=== PATIENT | male | born 1990 | race Caucasian/White ===

== ENCOUNTER 2020-04-11 19:47 | Emergency (ER) | payer MEDICAID ==
--- NOTE | 2020-04-11 20:21 | ER Document Report ---
ED Medical Screen (RME) - General Chief Complaint: Flank Pain Stated Complaint: SIDE PAIN,BACK PAIN Time Seen by Provider: 04/11/20 20:13 Mode of Arrival: Ambulatory Information source: Patient Notes: 29-year-old male presented to ED for complaint of bilateral flank pain. He states when he gets the urge to urinate his bilateral flank gets very tight and tense and then after he urinates everything is feels better. He has been very fatigued for the last 2 to 3 days with no appetite. He states usually he smokes about half pack of day but has not smoked at all today. He states he rarely drinks maybe once or twice a year. He does have a history of anxiety high blood pressure a fractured right hand with surgery and a fractured right shoulder. He has had her tonsils and adenoids removed. He is alert oriented respirations regular nonlabored speaking in full sentences. He does have tenderness to bilateral flank areas. I have greeted and performed a rapid initial assessment of this patient. A comprehensive ED assessment and evaluation of the patient, analysis of test results and completion of medical decision making process will be conducted by an additional ED providers. Physical Exam - Vital signs Vitals: Temp Pulse Resp BP Pulse Ox 98.3 F 84 18 140/82 H 97 04/11/20 19:59 04/11/20 19:59 04/11/20 19:59 04/11/20 19:59 04/11/20 19:59 Course - Vital Signs Vital signs: Temp Pulse Resp BP Pulse Ox 98.3 F 84 18 140/82 H 97 04/11/20 19:59 04/11/20 19:59 04/11/20 19:59 04/11/20 19:59 04/11/20 19:59
[2020-04-11 21:14] LABS: ABSOLUTE EOSINOPHILS # (AUTO) 0.1 10^3/uL (0.0-0.6); ABSOLUTE LYMPHOCYTES (AUTO) 2.1 10^3/uL (0.5-4.7); ABSOLUTE MONOCYTES (AUTO) 0.4 10^3/uL (0.1-1.4); ABSOLUTE NEUT (AUTO) 5.6 10^3/uL (1.7-8.2); BASOPHILS % (AUTO) 0.5 % (0-2); EOSINOPHILS % (AUTO) 1.4 % (0-6); HEMOGLOBIN 15.2 g/dL (13.5-17.0); LYMPHOCYTES % (AUTO) 25.2 % (13-45); MEAN CORPUSCULAR HEMOGLOBIN 29.1 pg (27.0-33.4); MEAN CORPUSCULAR HGB CONC 36.2 g/dL (32.0-36.0); MEAN CORPUSCULAR VOLUME 80 fl (80-97); MONOCYTES % (AUTO) 4.7 % (3-13); PLATELET COUNT 255 10^3/uL (150-450); RED BLOOD COUNT 5.22 10^6/uL (4.35-5.55); RED CELL DISTRIBUTION WIDTH 13.9 % (11.5-14.0); SEGMENTED NEUTROPHILS % (AUTO) 68.2 % (42-78); TOTAL CELLS COUNTED % (AUTO) 100 %; WHITE BLOOD COUNT 8.3 10^3/uL (4.0-10.5)
[2020-04-11 21:24] LABS: APPEARANCE,URINE CLEAR; BILIRUBIN,URINE NEGATIVE (NEGATIVE); COLOR,URINE STRAW; GLUCOSE, URINE NEGATIVE (NEGATIVE); KETONES,URINE NEGATIVE (NEGATIVE); LEUKOCYTE ESTERASE,URINE NEGATIVE (NEGATIVE); NITRITE,URINE NEGATIVE (NEGATIVE); PROTEIN,URINE NEGATIVE (NEGATIVE); URINE SPECIFIC GRAVITY 1.008; UROBILINOGEN,URINE NEGATIVE mg/dL (<2.0)
[2020-04-11 21:33] LABS: ALKALINE PHOSPHATASE 83 U/L (38-126); ANION GAP 12 (5-19); ASPARTATE AMINO TRANSFERASE 34 U/L (17-59); BILIRUBIN,DIRECT 0.3 mg/dL (0.0-0.4); BILIRUBIN,TOTAL 0.5 mg/dL (0.2-1.3); BLOOD UREA NITROGEN 8 mg/dL (7-20); CALCIUM 9.9 mg/dL (8.4-10.2); CARBON DIOXIDE 29 mmol/L (22-30); CHLORIDE 100 mmol/L (98-107); GLUCOSE 99 mg/dL (75-110); NEONATAL BILIRUBIN RESULT 0.2 mg/dL (0.1-1.1); POTASSIUM 3.8 mmol/L (3.6-5.0)
--- NOTE | 2020-04-11 22:30 | RADIOLOGY REPORT (SQ) ---
EXAM DESCRIPTION: Renal ultrasound CLINICAL HISTORY: 29 years Male; Bilateral flank pain TECHNIQUE: Bilateral renal ultrasound was performed. COMPARISON: None. FINDINGS: Right kidney: The kidney measures 10.9 x 5.6 x 5.4 cm and has normal echogenicity. Blood flow is present.. No hydronephrosis or shadowing calculi. Left kidney: The kidney measures 9.5 x 4.3 x 5.5 cm and has normal echogenicity. Normal blood flow. No hydronephrosis or shadowing calculi. Bladder: The bladder is mostly empty. Ureteral jets are not seen. IMPRESSION: Normal renal sonogram.
--- NOTE | 2020-04-12 01:38 | ER Document Report ---
ED General - General Chief Complaint: Flank Pain Stated Complaint: SIDE PAIN,BACK PAIN Time Seen by Provider: 04/11/20 20:13 Mode of Arrival: Ambulatory Information source: Patient TRAVEL OUTSIDE OF THE [place] IN LAST 30 DAYS: No - HPI Onset: Last week Onset/Duration: Gradual, Intermittent Quality of pain: Achy Severity: Mild Pain Level: 1 Associated symptoms: None. denies: Diarrhea, Leg swelling, Nausea, Vomiting, Shortness of breath Exacerbated by: Movement, Walking Relieved by: Denies Similar symptoms previously: No Recently seen / treated by doctor: No Past Medical History - General Information source: Patient - Social History Smoking Status: Current Some Day Smoker Cigarette use (# per day): Yes Chew tobacco use (# tins/day): No Smoking Education Provided: Yes Frequency of alcohol use: None Drug Abuse: None Lives with: Family Family History: CAD, DM, Hypertension, Other - Brother of heart attack in his 20's old of unknown etiology Patient has suicidal ideation: No Patient has homicidal ideation: No - Medical History Medical History: Negative Past Surgical History: Reports: Orthopedic Surgery Review of Systems - Review of Systems Constitutional: No symptoms reported EENT: No symptoms reported Cardiovascular: No symptoms reported Respiratory: No symptoms reported Gastrointestinal: No symptoms reported Genitourinary: No symptoms reported Male Genitourinary: No symptoms reported Musculoskeletal: See HPI Skin: No symptoms reported Hematologic/Lymphatic: No symptoms reported Neurological/Psychological: No symptoms reported Physical Exam - Vital signs Vitals: Temp Pulse Resp BP Pulse Ox 98.3 F 84 18 140/82 H 97 04/11/20 19:59 04/11/20 19:59 04/11/20 19:59 04/11/20 19:59 04/11/20 19:59 - Notes Notes: PHYSICAL EXAMINATION: GENERAL: Well-appearing, well-nourished and in no acute distress. HEAD: Atraumatic, normocephalic. EYES: Pupils equal round and reactive to light, extraocular movements intact, sclera anicteric, conjunctiva are normal. ENT: nares patent, oropharynx clear without exudates. Moist mucous membranes. NECK: Normal range of motion, supple without lymphadenopathy, no appreciable JVD LUNGS: Lungs clear to auscultation bilaterally and equal. No wheezes rales or rhonchi. HEART: Regular rate and rhythm without murmurs ABDOMEN: Soft, nontender, normal bowel sounds. No guarding, no rebound. No masses appreciated. EXTREMITIES: Active full range of motion, no pitting or edema. No cyanosis. 2+ pulses x4 negative straight leg raise bilaterally Back: There is some mild tenderness to the mid to lower thoracic region without step-offs without muscle spasm or increased ropiness or tenderness there is no lesions were discoloration. NEUROLOGICAL: No focal neurological deficits. Moves all extremities spontaneously and on command. SKIN: Warm, Dry, and intact. Normal turgor, no rashes or lesions noted. Course - Re-evaluation Re-evalutation: 04/12/20 01:39 I did reveal you 8 the patient and discussed the laboratory and radiologic results with him. I feel the patient is very low risk for any serious pathology seeing his all his labs and radiologic study was negative. No x-ray was performed because there is been no recent slip or fall. On further discussion the patient relates that he did have a heart examination secondary to his brothe rs heart attack and subsequent kidney failure and demise at an early age, in his 20's. Patient's explanation sounds like the patient had a calcium score CT performed. Patient will be discharged home with conservative management of low back pain alternating between ice and heat and Tylenol and Motrin and encouraged some active stretching. Patient is recommended to follow-up as needed. 04/12/20 01:40 - Vital Signs Vital signs: Temp Pulse Resp BP Pulse Ox 98.6 F 69 18 140/82 H 100 04/12/20 01:08 04/12/20 01:08 04/12/20 01:08 04/12/20 01:08 04/12/20 01:08 - Laboratory Result Diagrams: 04/11/20 20:55 04/11/20 20:55 Laboratory results interpreted by me: 04/11/20 20:55 [facility] 36.2 H - Diagnostic Test Radiology reviewed: Reports reviewed Discharge - Discharge Clinical Impression: Muscle strain Back pain Qualifiers: Back pain location: thoracic back pain Chronicity: acute Back pain laterality: bilateral Qualified Code(s): M54.6 - Pain in thoracic spine Condition: Stable Disposition: HOME, SELF-CARE Additional Instructions: LOW BACK PAIN: Three out of every four people will have an episode of disabling back pain during their lifetime. Most commonly the pain is due to straining of the muscles and ligaments in the low back. Usual treatment includes: (1) Rest on a firm surface. Avoid lying on your stomach. (2) Ice pack the painful area. After a few days, gentle heat may be used intermittently to relax the area, or ice packs can be continued. (3) Medication may be needed -- muscle relaxers and antiinflammatory medicines are commonly used. (4) As the back improves, exercises are prescribed to strengthen the back and abdominal muscles. Your doctor will advise you on the proper care for your back at each stage in your recovery. You may be better in a few days -- or healing may take several weeks. If new symptoms of a "herniated disc" (radiation of pain, numbness, or tingling down the back of the leg or weakness in the leg) occur, you should be re-examined. Further testing may be necessary. ICE PACKS: Apply ice packs frequently against the painful area. Many different schedules are recommended, such as "20 minutes on, 20 minutes off" or "one hour ice, two hours rest." If you need to work, you may need to go longer between ice treatments. You should plan to have the area ice packed AT LEAST one fourth of the time. The ice should be applied over the wrap, tape, or splint, or over a layer of cloth -- not directly against the skin. Some ice bags have a built-in cloth and can be put directly on the skin. WARM PACKS: After approximately two days, apply gentle heat (such as a heating pad or hot water bottle) for about 20 to 30 minutes about every two hours -- at least four times daily. Warmth and elevation will help you make a more rapid recovery, and will ease the pain considerably. Do not use HOT heat, and never apply heat for longer than 30 minutes. The continuous heat can invisibly damage skin and muscles -- even when no burn is seen on the surface. Damaged muscles can make you MORE sore. FOLLOW-UP CARE: If you have been referred to a physician for follow-up care, call the physicians office for an appointment as you were instructed or within the next two days. If you experience worsening or a significant change in your symptoms, notify the physician immediately or return to the Emergency Department at any time for re-evaluation.
[2020-04-12 02:01] VITALS: BP 139/79
== END 2020-04-12 01:59 | disposition home or self-care (01) ==
LOC: ER 19:47
DX: T14.8XXA Other injury of unspecified body region, initial encounter (principal); X58.XXXA Exposure to other specified factors, initial encounter; M54.6 Pain in thoracic spine; M54.5 Low back pain; F17.210 Nicotine dependence, cigarettes, uncomplicated; R10.9 Unspecified abdominal pain
CPT/HCPCS: 36415; 76770; 80053; 81001; 83690; 85025; 87086; 99284